=== PATIENT | female | born 1990 | race Two or more races ===

== ENCOUNTER → 2025-04-18 | Outpatient (BNVA) | payer MEDICAID, SELFPAY | END | disposition home or self-care (01) | PROVIDERS: PCP Nurse Practitioner Family; Referring Provider Nurse Practitioner Family; Visit Provider Nurse Practitioner Family | DX: Z11.3 Encounter for screening for infections with a predominantly sexual mode of transmission (principal); Z32.02 Encounter for pregnancy test, result negative | CPT/HCPCS: 99214 ==

== ENCOUNTER → 2025-04-23 | Outpatient (BNVA) | payer MEDICAID, SELFPAY | END | disposition home or self-care (01) | PROVIDERS: PCP Nurse Practitioner Family; Referring Provider Nurse Practitioner Family; Visit Provider Nurse Practitioner Family | DX: Z71.2 Person consulting for explanation of examination or test findings (principal); A59.9 Trichomoniasis, unspecified; B00.9 Herpesviral infection, unspecified | CPT/HCPCS: 99213 ==

== ENCOUNTER → 2025-05-10 | Outpatient (BNVA) | payer MEDICAID, SELFPAY | END | disposition home or self-care (01) | PROVIDERS: PCP Nurse Practitioner Family; Referring Provider Nurse Practitioner Family; Visit Provider Nurse Practitioner Family | DX: Z00.00 Encounter for general adult medical examination without abnormal findings (principal); Z23 Encounter for immunization; Z13.1 Encounter for screening for diabetes mellitus; Z13.220 Encounter for screening for lipoid disorders; E66.01 Morbid (severe) obesity due to excess calories; Z68.41 Body mass index [BMI] 40.0-44.9, adult; Z86.59 Personal history of other mental and behavioral disorders | CPT/HCPCS: 90471; 90686; 99215 ==

== ENCOUNTER → 2025-05-23 | Outpatient (BNVA) | payer MEDICAID, SELFPAY | END | disposition home or self-care (01) | PROVIDERS: PCP Nurse Practitioner Family; Referring Provider Nurse Practitioner Family; Visit Provider Nurse Practitioner Family | DX: A59.9 Trichomoniasis, unspecified (principal) | CPT/HCPCS: 99213; 99214 ==

== ENCOUNTER → 2025-05-28 | Outpatient (BNVA) | payer MEDICAID, SELFPAY | END | disposition home or self-care (01) | PROVIDERS: PCP Nurse Practitioner Family; Referring Provider Nurse Practitioner Family; Visit Provider Nurse Practitioner Family | DX: Z71.2 Person consulting for explanation of examination or test findings (principal); A54.9 Gonococcal infection, unspecified; N93.9 Abnormal uterine and vaginal bleeding, unspecified; A59.9 Trichomoniasis, unspecified | CPT/HCPCS: 96372; 99213; A4216; J0696 ==

== ENCOUNTER → 2025-06-04 | Outpatient (BNVA) | payer MEDICAID, SELFPAY | END | disposition home or self-care (01) | PROVIDERS: PCP Nurse Practitioner Family; Referring Provider Nurse Practitioner Family; Visit Provider Nurse Practitioner Family | DX: Z00.01 Encounter for general adult medical examination with abnormal findings (principal); M25.571 Pain in right ankle and joints of right foot; E66.9 Obesity, unspecified; Z68.41 Body mass index [BMI] 40.0-44.9, adult; E78.5 Hyperlipidemia, unspecified; Z71.85 Encounter for immunization safety counseling; Z71.2 Person consulting for explanation of examination or test findings; R94.5 Abnormal results of liver function studies; E55.9 Vitamin D deficiency, unspecified | CPT/HCPCS: 99395; G0439 ==

== ENCOUNTER → 2025-06-18 | Outpatient (CLI) | payer MEDICAID, SELFPAY ==
--- NOTE | 2025-06-18 10:37 | XR_ITS ---
Examination: Foot, right, 3 views Technique: AP, oblique, lateral views foot, 3 views Date and time of exam: June 18, 2025, 10:51 a.m. INDICATIONS: Right foot pain today. FINDINGS: Mild narrowing first metatarsophalangeal joint No fracture No cortical bone destruction 5 mm plantar bony calcaneal spur IMPRESSION: No fracture Mild narrowing first metatarsophalangeal joint Small plantar bony calcaneal spur
== END | disposition home or self-care (01) ==
PROVIDERS: PCP Nurse Practitioner Family; Referring Provider Nurse Practitioner Family; Visit Provider Nurse Practitioner Family
DX: M25.871 Other specified joint disorders, right ankle and foot (principal); M77.31 Calcaneal spur, right foot
CPT/HCPCS: 73630

== ENCOUNTER → 2025-06-25 | Outpatient (BNVA) | payer MEDICAID, SELFPAY | END | disposition home or self-care (01) | PROVIDERS: PCP Nurse Practitioner Family; Referring Provider Nurse Practitioner Family; Visit Provider Nurse Practitioner Family | DX: Z12.4 Encounter for screening for malignant neoplasm of cervix (principal) | CPT/HCPCS: 81001; 99214; Q0091 ==

== ENCOUNTER → 2025-07-04 | Outpatient (BNVA) | payer MEDICAID, SELFPAY | END | disposition home or self-care (01) | PROVIDERS: PCP Nurse Practitioner Primary Care; Referring Provider Nurse Practitioner Primary Care; Visit Provider Nurse Practitioner Primary Care | DX: Z71.2 Person consulting for explanation of examination or test findings (principal); M77.31 Calcaneal spur, right foot | CPT/HCPCS: 96372; 99213; A4216; J0696 ==

== ENCOUNTER → 2025-07-09 | Outpatient (BNVA) | payer MEDICAID, SELFPAY | END | disposition home or self-care (01) | PROVIDERS: PCP Nurse Practitioner Family; Referring Provider Nurse Practitioner Family; Visit Provider Nurse Practitioner Family | DX: Z71.2 Person consulting for explanation of examination or test findings (principal); M77.31 Calcaneal spur, right foot | CPT/HCPCS: 99212; G0463 ==

== ENCOUNTER → 2025-07-20 | Outpatient (BNVA) | payer MEDICAID, SELFPAY | END | disposition home or self-care (01) | PROVIDERS: PCP Nurse Practitioner Family; Referring Provider Nurse Practitioner Family; Visit Provider Nurse Practitioner Family | DX: A54.9 Gonococcal infection, unspecified (principal); Z72.53 High risk bisexual behavior | CPT/HCPCS: 99214 ==